=== PATIENT | male | born 1995 | race Hispanic/Latino ===

== ENCOUNTER 2020-05-30 17:46 | Emergency (ER) | payer OTHER ==
--- NOTE | 2020-05-30 18:44 | REP ---
INDICATION: CHEST PAIN. COMPARISON: None. TECHNIQUE: SINGLE PORTABLE AP VIEW OF THE CHEST WAS PERFORMED. FINDINGS: THERE IS NO ACUTE INFILTRATE OR PULMONARY EDEMA. LUNGS ARE CLEAR. HEART IS NOT SIGNIFICANTLY ENLARGED. MEDIASTINAL SILHOUETTE IS UNREMARKABLE. THE VISUALIZED OSSEOUS STRUCTURES ARE INTACT. IMPRESSION: NO ACUTE PULMONARY DISEASE. <Electronically signed by Cameron Campbell > 05/30/20 2018
[2020-05-30 19:04] LABS: BASO # 0.1 10^3/uL (0.0-0.2); BASO % 0.5 % (0.0-1.0); EOS # 0.1 10^3/uL (0.0-0.5); EOS % 1.1 % (0.0-3.0); LYMPH % 17.8 % (24.0-44.0); MEAN CORPUSCULAR HEMOGLOBIN 29.6 pg (27.0-33.0); MEAN CORPUSCULAR HGB CONC 33.3 g/dl (32.0-36.5); MEAN CORPUSCULAR VOLUME 88.9 fl (80.0-96.0); MONO % 8.7 % (0.0-5.0); NEUTROPHILS # 7.9 10^3/uL (1.5-8.5); NEUTROPHILS % 71.4 % (36.0-66.0); PLATELET COUNT, AUTOMATED 274 10^3/uL (150-450); RED BLOOD COUNT 5.06 10^6/uL (4.30-6.10)
[2020-05-30 19:27] LABS: INR 0.97; PROTHROMBIN TIME 13.1 SECONDS (12.5-14.3)
[2020-05-30 19:43] LABS: ALBUMIN 3.9 GM/DL (3.2-5.2); ALT/SGPT 18 U/L (12-78); BILIRUBIN,DIRECT 0.2 MG/DL (0.0-0.2); BILIRUBIN,TOTAL 0.6 MG/DL (0.2-1.0); CK-MB VALUE MASS < 1.0 NG/ML (<3.6); CPK CREATINE PHOSPHOKINASE 163 U/L (39-308); LIPASE 99 U/L (73-393); MB/CK RELATIVE INDEX 0.61 (< OR =4); TOTAL PROTEIN 7.3 GM/DL (6.4-8.2); TROPONIN I < 0.02 NG/ML (< 0.10)
[2020-05-30 20:42] LABS: D-DIMER QUANT < 270 ng/ml (<500)
[2020-05-30] MEDS ORDERED: KETOROLAC 30 MG/ML 1ML VIAL IV ONE (20:45)
[2020-05-30 23:00] LABS: CK-MB VALUE MASS < 1.0 NG/ML (<3.6); CPK CREATINE PHOSPHOKINASE 178 U/L (39-308); MB/CK RELATIVE INDEX 0.56 (< OR =4); TROPONIN I < 0.02 NG/ML (< 0.10)
[2020-05-30 23:11] LABS: BLOOD UREA NITROGEN 11 MG/DL (7-18); CALCIUM LEVEL 9.2 MG/DL (8.5-10.1); CARBON DIOXIDE LEVEL 31 MEQ/L (21-32); CHLORIDE LEVEL 102 MEQ/L (98-107); CREATININE FOR GFR 1.07 MG/DL (0.70-1.30); GLOMERULAR FILTRATION RATE > 60.0 (>60); GLUCOSE, FASTING 80 MG/DL (70-100); SODIUM LEVEL 137 MEQ/L (136-145)
[2020-05-31 00:05] VITALS: BP 126/58
--- NOTE | 2020-05-31 05:32 | ECGEPIP ---
[facility] - ED Test Date: 2020-05-30 Pat Name: [id number] Department: Room: - Gender: Male Applications Scientist: shefali : 1995 Requested By: Az Arreaga Order Number: [id number] Reading MD: Delano Leslie Measurements Intervals [place] Rate: 68 P: 48 UT: 140 QRS: -15 QRSD: 108 T: 31 QT: 363 QTc: 388 Interpretive Statements SINUS RHYTHM WITH SINUS ARRHYTHMIA POSSIBLE RIGHT VENTRICULAR CONDUCTION DELAY MINIMAL VOLTAGE CRITERIA FOR LVH, CONSIDER NORMAL VARIANT ST ELEVATION, PROBABLY EARLY REPOLARIZATION Comparison tracing not on file Electronically Signed on 05-31-2020 5:32:38 EST by Delano Leslie
== END 2020-05-31 00:08 | disposition home or self-care (01) ==
LOC: EDBD 17:46 → M ED 17:46
DX: R07.89 Other chest pain (principal)
CPT/HCPCS: 71045; 80048; 80076; 82550; 82553; 83690; 84484; 85025; 85379; 85610; 93005; 93041; 94760; 96374; 99285; J1885

== ENCOUNTER 2020-06-27 13:45 | Emergency (ER) | payer OTHER ==
[~2020-06-27] VITALS: Ht 165.1 cm; Wt 70.2 kg
[2020-06-27] MEDS ORDERED: ALBUTEROL 90 MCG/ACT 8GM HFA INHALER INH ONE (15:00)
--- NOTE | 2020-06-27 15:24 | REP ---
INDICATION: chest tightness, dry cough for 6 weeks, smoker. COMPARISON: Comparison chest x-ray 30 May 2020. TECHNIQUE: Two views.. FINDINGS: The lungs are well inflated and free of infiltrate. The pleural angles are sharp. The heart size is normal. Pulmonary vasculature is not increased. No significant bony abnormality is seen. IMPRESSION: Negative chest x-ray. <Electronically signed by Dom Rios > 06/27/20 [id number]
[2020-06-27 16:04] VITALS: BP 131/80
== END 2020-06-27 16:06 | disposition home or self-care (01) ==
LOC: M ED 13:45
DX: J98.01 Acute bronchospasm (principal); F17.210 Nicotine dependence, cigarettes, uncomplicated